=== PATIENT | male | born 1950 | race Caucasian/White ===

== ENCOUNTER → 2019-05-20 | Outpatient (CLI) | payer MEDICARE, OTHER ==
--- NOTE | 2019-05-20 16:20 | RAD ---
Left lower extremity venous duplex study 05/20/2019 Clinical History: Left foot and ankle swelling. Recent travel. Technique: Using a combination of real time ultrasound imaging and color-flow and pulse Doppler imaging techniques along with graded compression and augmentation, duplex evaluation of the deep venous system of the left lower extremity was performed. Multiple images were obtained. Findings: There is no sonographic evidence of deep venous thrombosis involving the visualized deep venous structures of the left lower extremity. Impression: Negative study. Electronically signed by: Darin Lee MD (05/20/2019 4:17 PM) [id number]
== END | disposition home or self-care (01) ==
LOC: US 15:13
DX: I82.4Z2 Acute embolism and thrombosis of unspecified deep veins of left distal lower extremity (principal); M79.89 Other specified soft tissue disorders
CPT/HCPCS: 93971